=== PATIENT | male | born 1945 | race Caucasian/White ===

== ENCOUNTER 2019-07-21 01:04 | Emergency (ER) | payer OTHER ==
[~2019-07-21] VITALS: Ht 170.2 cm; Wt 78.0 kg
--- NOTE | 2019-07-21 01:23 | NUR ---
PT BIB SELF C/O HIGH BP. PT REPORTS BP AT HOME IN 200'S, CURRENT BP 201/78. PT REPORTS HE HAD LT SHOULDER PAIN THIS MORNING, DENIES TRAUMA. PT DENIES N/V, HEADACHE, CP, SOB, OR VISUAL DISTURBANCES. DR DONALDSON AT BEDSIDE PMH:HTN, DM RX:LOSARTAN
[2019-07-21] MEDS ORDERED: METOPROLOL 5 MG/5 ML VIAL IVP ONE (01:25)
--- NOTE | 2019-07-21 02:11 | NUR ---
DR DONALDSON AT BEDSIDE
[2019-07-21 02:27] VITALS: BP 157/74
--- NOTE | 2019-07-21 02:27 | NUR ---
Patient discharged with v/s stable. Written and verbal after care instructions given and explained. Patient alert, oriented and verbalized understanding of instructions. Ambulatory with steady gait. All questions addressed prior to discharge. ID band removed. Patient advised to follow up with PMD. Rx of CLONIDINE given. Patient educated on indication of medication including possible reaction and side effects. Opportunity to ask questions provided and answered.
== END 2019-07-21 02:28 | disposition home or self-care (01) ==
LOC: MED 01:04
DX: I10 Essential (primary) hypertension (principal); Z88.8 Allergy status to other drugs, medicaments and biological substances
CPT/HCPCS: 96374; 99283; J3490; 93005

== ENCOUNTER 2023-07-26 11:07 | Emergency (ER) | payer OTHER ==
[~2023-07-26] VITALS: Ht 167.6 cm; Wt 77.1 kg
[2023-07-26 11:12] VITALS: BP 202/86; PULSE 62; RESP 18; TEMP 97.9; O2SAT 97
[2023-07-26] MEDS: amLODIPine 5 MG TAB PO ONE (11:57)
[2023-07-26] MEDS: CLONIDINE HYDROCHLORIDE 0.1 MG TAB PO ONE (12:44)
[2023-07-26 13:46] VITALS: RESP 18; TEMP 98.3; O2SAT 99
[2023-07-26 14:14] VITALS: BP 145/88; PULSE 60
== END 2023-07-26 13:48 | disposition home or self-care (01) ==
LOC: MED 11:07
DX: I10 Essential (primary) hypertension (principal); Z91.148 Patient's other noncompliance with medication regimen for other reason; E11.9 Type 2 diabetes mellitus without complications; Z88.8 Allergy status to other drugs, medicaments and biological substances
CPT/HCPCS: 82948; 93005; 99285